=== PATIENT | female | born 1985 | race Caucasian/White ===

== ENCOUNTER 2016-12-12 05:42 | Emergency (ER) | payer OTHER ==
[~2016-12-12] VITALS: Ht 175.3 cm; Wt 98.0 kg
[~2016-12-12 05:42] MED LIST: AZIT250T94 PO
[2016-12-12 05:47] VITALS: Ht 175.3 cm; Wt 98.0 kg
[2016-12-12] MEDS ORDERED: ALBU18HF INHALATION (06:21)
[2016-12-12] MEDS ORDERED: IBUP800T25 PO (06:21)
--- NOTE | 2016-12-12 06:23 | ERD ---
ER Documentation Chief Complaint Date/Time DATE: 12/12/16 TIME: 06:22 Chief Complaint cough since last night HPI Very pleasant 31-year-old female no past medical history who presents to the emergency room with a cough that started yesterday evening. She also describes mild sore throat, mild headache and myalgias. The cough is dry nonproductive, no hematemesis. The patient states that the cough has been nagging which prompted her visit to the emergency room. No recent travel, immobilization, surgery, no chest pain, no pleuritic pain, no calf swelling. ROS All systems reviewed and are negative except as per history of present illness. Medications Home Meds Active Scripts Ibuprofen* (Motrin*) 800 Mg Tab, 800 MG PO Q6H Y for PAIN AND OR ELEVATED TEMP, #30 TAB Prov:KEV BENDER MD 12/12/16 Albuterol Sulfate* (Ventolin HFA*) 18 Gm Hfa.aer.ad, 2 PUFF INHALATION Q4H, #1 INHALER Prov:KEV BENDER MD 12/12/16 Allergies Allergies: Coded Allergies: No Known Drug Allergies (Verified Allergy, Unknown, 12/12/16) FmHx Family History: No diabetes Physical Exam Vitals Vital Signs Date Time Temp Pulse Resp B/P Pulse Ox O2 Delivery O2 Flow Rate FiO2 12/12/16 05:47 98.8 108 20 129/73 99 Physical Exam General: Well developed, well nourished, no acute distress Head: Normocephalic, atraumatic. Eyes: Pupils equally reactive, EOM intact ENT: Moist mucous membranes Neck: Supple, no lymphadenopathy Respiratory: Lungs clear bilaterally, no distress Cardiovascular: RRR, no murmurs, rubs, or gallops Abdominal: Soft, non-tender, non-distended, no peritoneal signs : Deferred MSK: No edema, no unilateral swelling, 5/5 strength Neurologic: Alert and oriented, moving all extremities, normal speech, no focal weakness, no cerebellar signs Skin: No rash Psych: Normal mood Procedures/MDM The patient's clinical presentation is very consistent with an acute viral syndrome. The patient is slight tachycardia do not believe her symptoms are consistent with pulmonary embolism. The patient most likely has a viral process. No indication for d-dimer testing. The patient does not exhibit any clinical signs or symptoms concerning for serious bacterial infection or systemic illness. Based on history and clinical exam findings the patient does not appear to have evidence of pneumonia, strep pharyngitis, urinary tract infection, bacteremia, sepsis, or meningitis. For these reasons I do not believe it is necessary to obtain laboratory testing or diagnostic imaging. I believe it would be appropriate for symptom control, and close outpatient primary care follow-up. We discussed follow up with the patient's primary care doctor within 24 to 48 hours as needed. We also discussed return to the emergency room for worsening symptoms or worsening condition. Discharge Medications: Motrin, Ventolin Departure Diagnosis: Primary Impression: Cough Additional Impression: Viral URI with cough Condition: Stable Patient Instructions: Uri, Viral W/ Wheezing (Adult) Referrals: [facility] YOU HAVE RECEIVED A MEDICAL SCREENING EXAM AND THE RESULTS INDICATE THAT YOU DO NOT HAVE A CONDITION THAT REQUIRES URGENT TREATMENT IN THE EMERGENCY DEPARTMENT. FURTHER EVALUATION AND TREATMENT OF YOUR CONDITION CAN WAIT UNTIL YOU ARE SEEN IN YOUR DOCTORS OFFICE WITHIN THE NEXT 1-2 DAYS. IT IS YOUR RESPONSIBILITY TO MAKE AN APPOINTMENT FOR FOLOW-UP CARE. IF YOU HAVE A PRIMARY DOCTOR --you should call your primary doctor and schedule an appointment IF YOU DO NOT HAVE A PRIMARY DOCTOR YOU CAN CALL OUR PHYSICIAN REFERRAL HOTLINE AT IF YOU CAN NOT AFFORD TO SEE A PHYSICIAN YOU CAN CHOSE FROM THE FOLLOWING [facility] [address] [facility]. [facility] [address] [facility] [facility] [address] [facility]. [facility] [address] [facility]. [facility] [address] [facility]. [facility]. [address] [facility]. [facility] YOU HAVE RECEIVED A MEDICAL SCREENING EXAM AND THE RESULTS INDICATE THAT YOU DO NOT HAVE A CONDITION THAT REQUIRES URGENT TREATMENT IN THE EMERGENCY DEPARTMENT. FURTHER EVALUATION AND TREATMENT OF YOUR CONDITION CAN WAIT UNTIL YOU ARE SEEN IN YOUR DOCTORS OFFICE WITHIN THE NEXT 1-2 DAYS. IT IS YOUR RESPONSIBILITY TO MAKE AN APPOINTMENT FOR FOLOW-UP CARE. IF YOU HAVE A PRIMARY DOCTOR --you should call your primary doctor and schedule and appointment IF YOU DO NOT HAVE A PRIMARY DOCTOR YOU CAN CALL OUR PHYSICIAN REFERRAL HOTLINE AT . IF YOU CAN NOT AFFORD TO SEE A PHYSICIAN YOU CAN CHOSE FROM THE FOLLOWING [facility] INSTITUTIONS: [facility] [address] [place] [address] [facility] [address] [place] [address] [facility] + [facility] [address] [place] [address] Additional Instructions: Call your primary care doctor TOMORROW for an appointment during the next 1 WEEK.Tell the racing secretary and handicapper that you were referred from this facility.See the doctor sooner or return here if your condition worsens before your appointment time. KEV BENDER MD Dec 12, 2016 06:23
[2016-12-12 06:42] VITALS: BP 118/60; PULSE 94; RESP 21; TEMP 98.3
== END 2016-12-12 06:42 | disposition home or self-care (01) ==
LOC: FTE 05:42
DX: R05 Cough (principal); J06.9 Acute upper respiratory infection, unspecified
CPT/HCPCS: 99283

== ENCOUNTER 2017-04-08 12:24 | Emergency (ER) | payer OTHER ==
[~2017-04-08] VITALS: Ht 175.3 cm; Wt 96.0 kg
[~2017-04-08 12:24] MED LIST changes: +ALBU18HF INHALATION; +IBUP800T25 PO
[2017-04-08 12:29] VITALS: Ht 175.3 cm; Wt 96.0 kg
[2017-04-08] MEDS ORDERED: KETOROLAC 30 MG INJ IV STA (13:19)
[2017-04-08 13:40] LABS: URINE BLOOD (Dip) POC Negative (NEGATIVE)
[2017-04-08] MEDS ORDERED: KETOROLAC 30 MG INJ IM STA (13:48)
--- NOTE | 2017-04-08 16:00 | ERD ---
ER Documentation Chief Complaint Date/Time DATE: 04/08/17 TIME: 15:55 Chief Complaint lower back pain after improper bending at the back HPI This is a 31-year-old female who presents to the emergency department today complaining of low back pain that started earlier today. 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 States she also has pain in her lower abdomen that goes all the way down into her vagina. States this is only occurred since her back pain.. States she took ibuprofen for pain with limited improvement in symptoms. States her pain is worse when she sits. Denies any loss of bowel or bladder control, dysuria, fevers or chills, nausea or vomiting. ROS All systems reviewed and are negative except as per history of present illness. Medications Home Meds Active Scripts Cyclobenzaprine Hcl* (Cyclobenzaprine Hcl*) 10 Mg Tablet, 10 MG PO QHS, #7 TAB Prov:LAZARA TERRAZAS PA-C 04/08/17 Naproxen* (Naprosyn*) 500 Mg Tablet, 500 MG PO BID Y for PAIN AND/OR INFLAMMATION, #30 TAB Prov:LAZARA TERRAZAS PA-C 04/08/17 Hydrocodone/Acetaminophen ([place]run[place] 5-325 Tablet) 1 Each Tablet, 1 TAB PO Q6H Y for PAIN, #12 TAB Prov:LAZARA TERRAZAS PA-C 04/08/17 Ibuprofen* (Motrin*) 800 Mg Tab, 800 MG PO Q6H Y for PAIN AND OR ELEVATED TEMP, #30 TAB Prov:KEV BENDER MD 12/12/16 Albuterol Sulfate* (Ventolin HFA*) 18 Gm Hfa.aer.ad, 2 PUFF INHALATION Q4H, #1 INHALER Prov:KEV BENDER MD 12/12/16 Azithromycin* (Zithromax*) 250 Mg Tablet, 250 MG PO DAILY for 5 Days, #6 TAB Please dispense Z-rose Prov:HECTOR GARCIA PA-C 06/25/16 Allergies Allergies: Coded Allergies: No Known Drug Allergies (Verified Allergy, Unknown, 12/12/16) PMhx/Soc History of Surgery: Yes () Anesthesia Reaction: No Hx Neurological Disorder: No Hx Respiratory Disorders: No Hx Cardiac Disorders: No Hx Psychiatric Problems: Yes (ANXIETY) Hx Miscellaneous Medical Probl: Yes (hypothyroidism) Hx Alcohol Use: No Hx Substance Use: No Hx Tobacco Use: No Smoking Status: Never smoker Physical Exam Vitals Vital Signs Date Time Temp Pulse Resp B/P Pulse Ox O2 Delivery O2 Flow Rate FiO2 04/08/17 12:29 97.6 82 18 177/93 100 Physical Exam Const: Patient crying Head: Atraumatic Eyes: Normal Conjunctiva ENT: Normal External Ears, Nose and Mouth. Neck: Full range of motion..~ No meningismus. Resp: Clear to auscultation bilaterally Cardio: Regular rate and rhythm, no murmurs Abd: Soft, mild nonspecific pelvic tenderness non distended. Normal bowel sounds no tenderness at [place] Skin: No petechiae or rashes Back: Lumbar spine midline tenderness. Unable to assess range of motion secondary to pain. Pulses 2+. Distal neurovascularly intact. Negative straight leg raise. Ext: No cyanosis, or edema Neur: Awake and alert Psych: Normal Mood and Affect Results 24 hrs Laboratory Tests Test 04/08/17 13:46 Bedside Urine pH (LAB) 7.0 Bedside Urine Protein (LAB) Negative Bedside Urine Glucose (UA) Negative Bedside Urine Ketones (LAB) Negative Bedside Urine Blood Negative Bedside Urine Nitrite (LAB) Negative Bedside Urine Leukocyte Esterase (L 1+ Current Medications Medications (Trade) Dose Ordered Sig/Rio Route PRN Reason Start Time Stop Time Status Last Admin Dose Admin Ketorolac Tromethamine (Toradol) 30 mg ONCE STAT IV 04/08/17 13:19 04/08/17 13:20 Cancel Ketorolac Tromethamine (Toradol) 30 mg ONCE STAT IM 04/08/17 13:48 04/08/17 13:49 DC 04/08/17 13:57 Procedures/MDM This is a 31-year-old female who presents the emergency department today complaining of sharp 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 Patient was also complaining of some pelvic pain that went down into her vagina but only occurred since that time. Patient is afebrile and otherwise well-appearing. She has no loss of bowel or bladder control. I did initially offer to do a CT scan for the patient given her pain however CT scan was unavailable and patient appeared to be more comfortable and was sitting in a chair after being given Toradol. She states that she just felt muscle spasm but her pain had improved significantly. Imaging was switched over to plain films. I do not feel the patient requires abdominal workup as patient only had pain at the start of her back pain. Patient had nonspecific pelvic tenderness I did obtain a UA and urine UA shows 1+ leukocyte esterase. She denies any dysuria this is likely a dirty catch. I will elect not to treat the patient at this time. test is negative. Patient's pelvic tenderness may possibly be due to urinary tract infection although patient denies any dysuria. Images of the lumbar spine were pending at time of signout to Awa Aden PA-C I do have low suspicion for acute fracture dislocation. Low suspicion for cauda equina or abscess as patient has no loss of bowel or bladder control she is afebrile and otherwise well-appearing. Symptoms at this time is consistent with sprain versus strain versus muscle spasm. Patient was given Toradol here in the emergency department she reported feeling significantly better. She will be given a prescription for short course of Brunswick , Naprosyn and Flexeril for home. At this time the patient is stable for discharge and outpatient management. Patient should follow up with their PCP in the next 1-2 days. They may return to the emergency department sooner for any persistent or worsening of symptoms. Patient understood and agreed with the plan. Departure Diagnosis: Primary Impression: Injury of back Encounter type: initial encounter Qualified Code: S39.92XA - Injury of back , initial encounter Condition: Fair LAZARA TERRAZAS PA-C Apr 08, 2017 16:00
[2017-04-08] MEDS ORDERED: CYCL-319 PO (16:06)
[2017-04-08] MEDS ORDERED: HYDR-906 PO (16:06)
[2017-04-08] MEDS ORDERED: NAPR-260 PO (16:06)
--- NOTE | 2017-04-08 16:19 | RADRPT ---
PROCEDURE: XR Lumbar Spine. CLINICAL INDICATION: Lumbar spine pain. TECHNIQUE: AP, lateral, and cone-down lateral view of the lumbar spine were obtained. COMPARISON: No prior studies are available for comparison. FINDINGS: The alignment of the lumbar spine is within normal limits. There are anterior osteophytes at L5-S1 with mild to moderate narrowing of the intervertebral disc spaces at this level. There are moderate associated discogenic endplate changes at L5-S1. The vertebral body heights and marrow density are normal in appearance. There is moderate facet spondylosis at at L5 S Y with suggestion of neural fo raminal narrowing at this level. The remaining neural foramina appear patent. The paraspinal soft tissues unremarkable. There is no evidence of fracture. The posterior elements are unremarkable. IMPRESSION: 1. Moderate spondylosis/degenerative enthesopathy at L5-S1. 2. Moderate facet spondylosis at L5-S1 with suggestion of neural foraminal narrowing at this level. 3. No evidence of fracture. RPTAT: HGAS .Clifton Field MD, MD Date Time Electronically viewed and signed by .Clifton Field MD, on 04/08/2017 16:18 .S/
[2017-04-08 16:56] VITALS: BP 152/88; PULSE 89; RESP 18
== END 2017-04-08 16:57 | disposition home or self-care (01) ==
LOC: FTE 12:24
DX: S39.92XA Unspecified injury of lower back, initial encounter (principal); E03.9 Hypothyroidism, unspecified; X50.9XXA Other and unspecified overexertion or strenuous movements or postures, initial encounter; Y92.9 Unspecified place or not applicable
CPT/HCPCS: 72100; 81003; 96372; J1885

== ENCOUNTER 2018-11-17 13:48 | Emergency (ER) | payer OTHER ==
[~2018-11-17] VITALS: Ht 170.2 cm; Wt 92.7 kg
[~2018-11-17 13:48] MED LIST changes: +AZIT250T PO; -AZIT250T94 PO; +CYCL10TA7 PO; +HYDR-4011 PO; -IBUP800T25 PO; +IBUP800T48 PO; +NAPR-985 PO
[2018-11-17 13:58] VITALS: Ht 170.2 cm; Wt 92.7 kg
[2018-11-17] MEDS ORDERED: MECLIZINE 12.5 MG TAB PO ONE (17:30)
[2018-11-17] MEDS ORDERED: MECL12.574 PO (18:59)
--- NOTE | 2018-11-17 19:02 | ERD ---
ER Documentation Chief Complaint Chief Complaint pt bib self with c/o ear pain and head congestion x 3 days HPI 33-year-old female presents for bilateral ear clogging sensation of dizziness times 3 days. She denies any fevers or chills. She states that the dizziness is worse with head turning. No similar symptoms in the past. She does have history of hypothyroidism. Denies chest pain or shortness of breath. Denies nausea or vomiting. ROS All systems reviewed and are negative except as per history of present illness. Medications Home Meds Active Scripts Meclizine Hcl* (Antivert*) 12.5 Mg Tab, 12.5 MG PO Q6H PRN for DIZZINESS, #30 TAB Prov:VICTOR MSTANTON 11/17/18 Cyclobenzaprine Hcl* (Cyclobenzaprine Hcl*) 10 Mg Tablet, 10 MG PO QHS, #7 TAB Prov:LAZARA TERRAZAS PA-C 04/08/17 Naproxen* (Naprosyn*) 500 Mg Tablet, 500 MG PO BID PRN for PAIN AND/OR INFLAMMATION, #30 TAB Prov:LAZARA TERRAZAS PA-C 04/08/17 Hydrocodone/Acetaminophen ([place] 5-325 Tablet) 1 Each Tablet, 1 TAB PO Q6H PRN for PAIN, #12 TAB Prov:LAZARA TERRAZAS PA-C 04/08/17 Ibuprofen* (Motrin*) 800 Mg Tab, 800 MG PO Q6H PRN for PAIN AND OR ELEVATED TEMP, #30 TAB Prov:KEV BENDER MD 12/12/16 Albuterol Sulfate* (Ventolin HFA*) 18 Gm Hfa.aer.ad, 2 PUFF INHALATION Q4H, #1 INHALER Prov:KEV BENDER MD 12/12/16 Azithromycin* (Zithromax*) 250 Mg Tablet, 250 MG PO DAILY for 5 Days, #6 TAB Please dispense Z-rose Prov:HECTOR GARCIA PA-C 06/25/16 Allergies Allergies: Coded Allergies: No Known Drug Allergies (Verified Allergy, Unknown, 12/12/16) PMhx/Soc History of Surgery: Yes () Anesthesia Reaction: No Hx Neurological Disorder: No Hx Respiratory Disorders: No Hx Cardiac Disorders: No Hx Psychiatric Problems: Yes (ANXIETY) Hx Miscellaneous Medical Probl: Yes (hypothyroidism) Hx Alcohol Use: No Hx Substance Use: No Hx Tobacco Use: No Smoking Status: Never smoker Physical Exam Vitals Vital Signs Date Temp Pulse Resp B/P (MAP) Pulse Ox O2 O2 Flow FiO2 Time Delivery Rate 11/17/18 98.0 85 18 141/71 99 13:58 (94) Physical Exam Const: No acute distress Head: Atraumatic Eyes: Normal Conjunctiva, no nystagmus noted EOMI and PERRL bilateral ENT: Normal External Ears, Nose and Mouth. Neck: Full range of motion. No meningismus. Resp: Clear to auscultation bilaterally Cardio: Regular rate and rhythm, no murmurs Skin: No petechiae or rashes Ext: No cyanosis, or edema Neur: Awake and alert Psych: Normal Mood and Affect Result Diagram: 11/17/18173611/17/181736 Results 24 hrs Laboratory Tests Test 11/17/18 17:37 White Blood Count 10.6 10^3/ul Red Blood Count 4.84 10^6/ul Hemoglobin 13.8 g/dl Hematocrit 42.7 % Mean Corpuscular Volume 88.2 fl Mean Corpuscular Hemoglobin 28.5 pg Mean Corpuscular Hemoglobin Concent 32.3 g/dl Red Cell Distribution Width 12.0 % Platelet Count 301 10^3/UL Mean Platelet Volume 10.4 fl Immature Granulocytes % 0.500 % Neutrophils % 62.6 % Lymphocytes % 29.1 % Monocytes % 5.0 % Eosinophils % 2.4 % Basophils % 0.4 % Nucleated Red Blood Cells % 0.0 /100WBC Immature Granulocytes # 0.050 10^3/ul Neutrophils # 6.6 10^3/ul Lymphocytes # 3.1 10^3/ul Monocytes # 0.5 10^3/ul Eosinophils # 0.3 10^3/ul Basophils # 0.0 10^3/ul Nucleated Red Blood Cells # 0.0 10^3/ul Sodium Level 143 mmol/L Potassium Level 4.4 mmol/L Chloride Level 105 mmol/L Carbon Dioxide Level 26 mmol/L Anion Gap 12 Blood Urea Nitrogen 10 mg/dl Creatinine 0.52 mg/dl Est Glomerular Filtrat Rate mL/min > 60 mL/min Glucose Level 93 mg/dl Calcium Level 9.6 mg/dl Total Bilirubin 0.3 mg/dl Direct Bilirubin 0.00 mg/dl Indirect Bilirubin 0.3 mg/dl Aspartate Amino Transf (AST/SGOT) 27 IU/L Alanine Aminotransferase (ALT/SGPT) 17 IU/L Alkaline Phosphatase 82 IU/L Total Protein 8.6 g/dl Albumin 4.7 g/dl Globulin 3.90 g/dl Albumin/Globulin Ratio 1.20 Current Medications Medications Dose Sig/Rio Start Time Status Last (Trade) Ordered Route PRN Stop Time Admin Dose Reason Admin Meclizine 25 mg ONCE ONCE 11/17/18 DC 11/17/18 HCl PO 17:30 17:32 (Antivert) 11/17/18 17:31 Procedures/MDM Medical Decision Making: Differential diagnosis includes but not limited to benign positional vertigo, CVA, TIA, dermatitis, otitis media, otitis externa Patient appeared well on physical exam. Patient was neurovascular intact ED course: Patient was given meclizine. Symptoms improved with treatment. CBC: no e/o of systemic infection or severe anemia CMP: no e/o severe acidosis, alkalosis, renal failure, diabetic ketoacidosis, liver disease Patient possibly has benign positional vertigo Prescription(s): Patient given prescription for supportive medication(s). Patient advised to follow up with PCP in 1-2 days. Patient advised to return to ED for new or worsening symptoms. Patient stable on discharge from the ED. Disclaimer: Inadvertent spelling and grammatical errors are likely due to EHR/dictation software use and do not reflect on the overall quality of patient care. Also, please note that the electronic time recorded on this note does not necessarily reflect the actual time of the patient encounter. Departure Diagnosis: Primary Impression: Dizzinesses Condition: Fair Patient Instructions: Dizziness (Vertigo) and Balance Problems: Ensuring Your Safety, Benign Positional Vertigo, Vertigo, Unspecified Referrals: [facility] YOU HAVE RECEIVED A MEDICAL SCREENING EXAM AND THE RESULTS INDICATE THAT YOU DO NOT HAVE A CONDITION THAT REQUIRES URGENT TREATMENT IN THE EMERGENCY DEPARTMENT. FURTHER EVALUATION AND TREATMENT OF YOUR CONDITION CAN WAIT UNTIL YOU ARE SEEN IN YOUR DOCTORS OFFICE WITHIN THE NEXT 1-2 DAYS. IT IS YOUR RESPONSIBILITY TO MAKE AN APPOINTMENT FOR FOLOW-UP CARE. IF YOU HAVE A PRIMARY DOCTOR --you should call your primary doctor and schedule an appointment IF YOU DO NOT HAVE A PRIMARY DOCTOR YOU CAN CALL OUR PHYSICIAN REFERRAL HOTLINE AT IF YOU CAN NOT AFFORD TO SEE A PHYSICIAN YOU CAN CHOSE FROM THE FOLLOWING [facility] [address] [facility] [address] [facility]. [facility] [address] [facility] [address] [facility] [facility] [address] [facility]. [facility] [address] Additional Instructions: Call your primary care doctor TOMORROW for an appointment during the next 1-2 days.See the doctor sooner or return here if your condition worsens before your appointment time. STANTON DOW DO Nov 17, 2018 19:02
[2018-11-17 19:11] VITALS: BP 132/96; PULSE 62; RESP 18
== END 2018-11-17 19:12 | disposition home or self-care (01) ==
LOC: FTE 13:48
DX: R42 Dizziness and giddiness (principal); E03.9 Hypothyroidism, unspecified
CPT/HCPCS: 80053; 85025; 99283